=== PATIENT | male | born 1980 | race Caucasian/White ===

== ENCOUNTER 2018-12-02 00:10 | Emergency (ER) | payer OTHER, SELFPAY ==
[2018-12-02 00:10] VITALS: BP 162/93; PULSE 88; RESP 14; TEMP 36.7; O2SAT 100; BMI 40.0
--- NOTE | 2018-12-02 00:14 | RAD_ITS ---
HISTORY: IInjuryRAD-EXT/JTlt knee injury pain patella no hx of sx EXAM: Right Knee COMPARISON: None FINDINGS: # of images incl. paperwork: 4 The joint spaces are well-maintained. No fracture or subluxation. The patellofemoral joint has a normal appearance. Tiny joint effusion is seen. RAD/Knee 4 or More Views IMPRESSION: No fracture or dislocation to the right knee. Small right knee effusion at 0116 Reported and signed by: Eddie Tyson MD Electronically Signed: Eddie Tyson MD at 1:15 EDT Tel , Service support ,
--- NOTE | 2018-12-02 01:23 | ED.VISSUMM ---
- ER Visit Summary Date of Service: 12/02/18 Chief Complaint: Left knee injury History of Present Illness: The patient is a 38 M who presents with a left knee injury. He was trying to write a small bicycle when he fell off of it. He twisted his left knee. He has pain diffusely over the knee. Is worse with movement and walking. He tried ice but it did not help. He denies any previous injuries or surgeries. Physical Examination: Lungs are reviewed. Left knee exam reveals tenderness medially and laterally. There is no swelling. He has full range of motion with pain. He has 2+ pedal pulses Test Results: X-rays reviewed by radiologist shows a small effusion but no fracture Emergency Department Course and Treatment: Patient appears to have sprained his knee. There are no fractures. Patient will be given instructions to use ice, elevation and ibuprofen for pain. 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 He will follow-up with his PCP for recheck next week Treatment Plan: [] Disposition: Discharge Impression: Left knee pain This note was generated with [employer] dictation software. It may contain incorrect words, spelling, and punctuation that were not noted in review of the chart prior to signing ED Disposition - Plan for ED Patient: Referrals: Mike Hill III, MD [Primary Care Provider] -
--- NOTE | 2018-12-02 01:25 | ED.DEP ---
ED Disposition - Plan for ED Patient: Disposition: Home or Assisted Living Instructions: Knee Sprain Referrals: Mike Hill III, MD [Primary Care Provider] -
== END 2018-12-02 01:33 | disposition home or self-care (01) ==
PROVIDERS: Emergency Provider Emergency Medicine; Family Provider Family Medicine; PCP Family Medicine
DX: S83.92XA Sprain of unspecified site of left knee, initial encounter (principal); V19.88XA Pedal cyclist (driver) (passenger) injured in other specified transport accidents, initial encounter; Y93.55 Activity, bike riding; Y92.9 Unspecified place or not applicable; I10 Essential (primary) hypertension
CPT/HCPCS: 73564; 99282

== ENCOUNTER → 2021-05-04 20:10 | Outpatient (CLI) | payer OTHER, SELFPAY | LOC: SL 20:10 | PROVIDERS: PCP Family Medicine; Visit Provider Nurse Practitioner Family | DX: G47.33 Obstructive sleep apnea (adult) (pediatric) (principal) | CPT/HCPCS: 95811 ==

== ENCOUNTER 2021-05-26 11:08 | Day surgery (SDC) | payer OTHER, SELFPAY ==
[2021-05-26] VITALS (8 sets, daily range): BP systolic 118–143; BP diastolic 66–89; PULSE 65–81; RESP 16–18; TEMP 36.1–37; O2SAT 93–99; BMI 39.4
--- NOTE | 2021-05-26 08:08 | HP.PCM_ITS ---
History and Physical Date of Admission: 05/26/21 HISTORY AND PHYSICAL ? Eris Freed 1980 ? ? REFERRING PHYSICIAN: Víctor Sahni APRN.[employer] ? CHIEF COMPLAINT: left inguinal hernia ? HPI: The patient is a 40 year old male presents with left inguinal hernia. He states that he had a hernia repair at age 4 but does not know location. He has noted the present hernia for the past few months. He denies pain in the area but notes a pressure discomfort in the area. He also has symptoms of prostate hypertrophy - decreased strength of stream and difficulties in initiating stream, emptying is normal. ? PAST MEDICAL HISTORY ? Hyperlipidemia LDL goal < 100 01/21/2010 ? Hypertriglyceridemia 10/07/2015 ? Irritable bowel syndrome 01/21/2010 ? Low HDL (under 40) 10/07/2015 ? Obesity 08/10/2012 ? KIMANI (obstructive sleep apnea) 12/20/2016 ? 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 ? Other diseases of pharynx, not elsewhere classified(478.29) ? ? PAST SURGICAL HISTORY PAST SURGICAL HISTORY OF? hip dysplasia ? ? Current Outpatient Medications ? Cholestyramine, Bulk, powd 4 grams in 8 oz of water daily ? Tadalafil (CIALIS) 20 mg tab(s) Take 1 tablet by mouth as needed. ? losartan (COZAAR) 50 mg tablet Take 1 tablet by mouth once daily. ? ? ALLERGIES: Patient has no known allergies. ? PERSONAL HISTORY: ? Smoking status: Never Smoker ? Smokeless tobacco: Never Used Substance Use Topics ? Alcohol use: No ? Drug use: No ? FAMILY HISTORY ? None Mother ? ? Heart Father 46 ? CO ? None Sister ? ? None Sister ? ? The review of systems data was entered by the nurse and reviewed by me ? Nursing Notes: Donna Marquez RN 03/23/2021 10:39 AM Signed REVIEW OF SYSTEMS: General: The patient denies fatigue, denies weight loss, denies weight gain, denies feeling hot, and denies feelings of cold. Eyes: The patient denies glaucoma, denies eye injury/surgery, does not wear glasses or contacts. Ear/Nose/Throat: The patient denies allergies, denies hayfever, denies ear infections, and denies bloody noses. Cardiovascular: The patient denies chest pain, denies heart disease, notes high blood pressure,denies cardiac stent, denies prior heart attack, denies irregular heart beat, denies high cholesterol, denies poor circulation, denies heart failure, other cardiac issues, denies claudication, denies cold feet, denies peripheral arterial stent. Respiratory: The patient denies tuberculosis, denies pneumonia, denies frequent cough, denies pulmonary embolism, denies shortness of breath, and denies coughing up blood. Gastrointestinal: The patient denies difficulty swallowing, denies acid reflux, denies ulcers, denies vomiting, denies jaundice/hepatitis, denies gallbladder problems, denies black or tarry stools, denies hemorrhoids, denies bleeding from rectum, denies diverticulitis, denies constipation, denies diar jonnie, denies loss of stool control, and denies hernias. Kidney/Bladder: The patient denies kidney stones, denies urine infections, and denies bloody urine. Skin: The patient denies a history of skin cancer, denies bleeding/changing moles, and denies a history of skin rash. Neurologic: The patient denies a history of epilepsy/convulsions, denies headaches, denies head/spinal injuries, and denies stroke/TIA. Psychiatric: The patient denies psychiatric medications, denies depression, and denies voices, denies substance abuse. Endocrine: The patient denies thyroid disorders, denies diabetes, and denies hormonal problems. Hematologic: The patient denies a history of bruising, denies bleeding, and denies anemia, denies blood clots. Infections: The patient denies a history of measles and mumps, denies rheumatic fever, and denies sexually transmitted diseases. Musculoskeletal: The patient notes back/hip pain/injury, denies back problems, denies sciatica, denies knee/foot trouble, denies arthritis, or denies gout. When was patient's last Mammogram screening? N/A Last Colonoscopy: never Donna Marquez RN ? ? ? PHYSICAL EXAMINATION: General: The patient is 40 year old male, well nourished, well hydrated in no acute distress. The patient is oriented to time, place, and person. VITALS: Pulse 79, temperature 36.7 ?C (98 ?F), height 182.9 cm (6'), weight 136 kg (299 lb 12.8 oz), SpO2 98 %. Body mass index is 40.66 kg/m?. Head ? Normocephalic. EOM intact with sclera clear and no icterus noted. . Neck - supple with no jugular venous distention noted. Trachea is midline. Lungs ? clear to auscultation. Normal breath sounds. No rales/rhonchi/wheezing noted. No labored breathing noted, such as retractions. No cough heard. Heart ? normal S1 and S2 auscultated. No rubs/clicks/murmurs noted. Regular rate. Abdomen ? soft and benign. Normal bowel sounds. Difficult to determine if any masses or organomegaly due to body habitus. Genitalia ? normal male phallus, increased peripubic adiposity, testes in normal anatomical position and no masses noted, left inguinal hernia noted, no right inguinal hernias noted even with valsalva-like maneuvers Extremities ? no calf tenderness noted. No pitting edema noted. Skin ? normal skin integrity. Neurological ? gait normal, no focal deficits noted. Psych ? calm and appropriate ? IMPRESSION: left inguinal hernia, BMI 40 ? PLAN: I have discussed the above with the patient and his who is present with him. I have offered left inguinal hernia repair with mesh I have explained the procedure to the patient. I have counseled the patient as to the risks of the procedure, including but not limited to: infection, bleeding, injury to any blood vessels/nerves, scar tissue, chronic groin pain, injury to bowel/bladder, injury to the spermatic cord and/or testicle, recurrence of hernia, wound infections, complications of anesthesia, etc. ? the patient understands. The patient wishes to proceed. I have answered all questions to the patient?s satisfaction and the patient has no further questions. ? Diagnoses: (K40.90) Non-recurrent unilateral inguinal hernia without obstruction or gangrene (primary encounter diagnosis) (E66.01) Morbid obesity (HCC) Return to Clinic: The patient is instructed to follow-up with me after the procedure ? Becca Rain MD
[2021-05-26] MEDS: Lactated Ringers 1,000 ML 75 ML IV (12:24)
[2021-05-26] MEDS: Lidocaine 1% /Epi 1:100 (20ml) 20 ML Vial (13:10)
[2021-05-26] MEDS: Bupivacaine 0.25% 30 ML Vial (14:20)
--- NOTE | 2021-05-26 14:35 | OP.PCM_ITS ---
Report of Operation Date of Procedure: 05/26/21 Pre-Operative Diagnosis: left inguinal hernia Post-Operative Diagnosis: left inguinal hernia - direct and indirect Surgery/Procedure Performed:: left inguinal hernia repair with preperitoneal placement of mesh Description of Surgical Findings:: indirect and direct inguinal hernia Surgeon: Becca Rain Type of Anesthesia: General Anesthesiologist: Cheikh Urbina Specimen's removed: none Drains: none Estimated Blood Loss (mL): < 10 ml Fluids Replaced: 1000 ml RL Description of Procedure: After informed consent was obtained, patient was brought to the Operating Room. Appropriate time out protocol was followed. He was then placed in the supine position. The patient was then placed under anesthesia. The lower torso and the left groin area and genitalia were then prepped with a surgical skin preparation and appropriate sterile surgical drapes were placed. The anatomical landmarks were identified and marked. The skin and subcutaneous tissues were infiltrated with local anesthestic. A transverse skin incision was made above the level of the internal inguinal ring. The subcutaneous tissues were then sharply dissected down to the external oblique fascia and any hemorrhage was adequately controlled with electrocoagulation. The external oblique was then divided obliquely along the fibers and a muscle- splitting incision was then made to divide the internal oblique musculature and fascia. The transversalis fascia was then identified and was then incised parallel to the inferior hypogastric vessels. The preperitoneal space was then entered. Blunt dissection was then done to identify out Nadir's ligament, the pubic tubercle and a large area surrounding these landmarks for placement of the mesh. The iliac vessels were identified. The patient did not have a femoral hernia. There was an internal hernia sac identified. The peritoneal sac was then from the spermatic cord by blunt and sharp dissection. It was opened and there was no incarceration of any intraabdominal contents. There is no evidence of any other opening in the peritoneum. The peritoneal opening that was created was then closed using a running 3-0 Vicryl suture. A large 3D Bard left sided hernia mesh was then placed in the preperitoneal space. It was placed such that it would be overlapping medially beyond the pubic tubercle and overlapping inferior to Nadir's ligament. The medial aspect of the mesh was then tacked to the pubic tubercle using a 5 mm tacker. Another tack was placed more lateral to this along Nadir's ligament. The mesh was then flattened out against the anterior abdominal wall. The mesh covered the entire wound opening also. The internal oblique fascia was then closed using interrupted 0 prolene suture. One of the sutures was used to lock the mesh into position. Hemostasis was carefully controlled with electrocoagulation. The external oblique fascia was then reapproximated using a running 0 Vicryl suture. This was carefully done to avoid any entrapment of blood vessels/nerves. Adria's fascia was closed using Vicryl suture in an interrupted simple fashion. The skin incision was closed with 4-0 Monocryl in a running subcuticular fashion. Cavilon and Steri- Strips were used to reinforce the skin closure and appropriate sterile dressing was applied. The patient was extubated. The patient tolerated the procedure well and there was no evidence of any complications. The patient was brought to the Recovery Room in stable condition. Grafts/Implants Used: Bard 3D Max Mesh Lot [id number], exp 2025-08-03 Complications none noted
--- NOTE | 2021-05-26 14:56 | EX.PCM.DISCH ---
Discharge Instructions Follow Up Care Test Results: Test results from this visit will be discussed in further detail at your follow-up appointment, if applicable. Discharge Plan Admission Attending Provider: Becca Rain Primary Care Provider: Víctor Sahni NP Instructions Additional Instructions / Restrictions: Recommended pain control regimen - May take 600 mg ibuprofen (Motrin) and then in 3-4 hours, may take 650 mg acetaminophen (Tylenol), then in 3-4 hours may take 600 mg ibuprofen, then in 3-4 hours may take 650 mg acetaminophen and so on for 2-3 days May take narcotic pain medication for pain that is not controlled by above and at night for comfort through the night Leave dressings in place May shower, do not scrub in the areas of the dressings as they may unravel. Do not soak - no tub baths/swimming Ice applied to areas of discomfort may help No lifting/pushing/pulling greater than 20 pounds for a month. Regular diet as tolerated, drink plenty of fluids. Use over the counter laxative as needed. For inguinal hernia repairs - sit in a Lazy-Boy type chair or similar position for comfort and elevate legs, place ice packs in the affected area. If you have scrotal swelling, place a folded towel on top of the upper part of your thighs and place scrotum on top of this to allow for fluid to return back into the torso. Please call my office for an appointment to see me in 1-2 weeks. Office number is If any questions, please call my office at and ask the broaching machine operator for the general surgery nurses desk Discharge Orders/Prescriptions Prescriptions: New hydrocodone-acetaminophen 5-325 mg tablet 1 tab PO Q8H 5 Days Qty: 15 RF: 0 No Action cholestyramine (with sugar) 378 GM powder 378 gm PO DAILY RF: 0 losartan 50 mg tablet 50 mg PO DAILY RF: 0 Referrals / Follow Up: Víctor Sahni NP, [employer] [Primary Care Provider] - Disposition Disposition (needs filled in before D/C Order can be placed): Home, Self Care
== END 2021-05-26 17:00 | disposition home or self-care (01) ==
LOC: SDC 11:14 → AC 11:18
PROVIDERS: PCP Nurse Practitioner Family; Visit Provider Surgery
PROC: (CPT 49505; principal; 2021-05-26 12:45)
DX: K40.90 Unilateral inguinal hernia, without obstruction or gangrene, not specified as recurrent (principal); E78.5 Hyperlipidemia, unspecified; G47.33 Obstructive sleep apnea (adult) (pediatric); K58.9 Irritable bowel syndrome, unspecified; E66.01 Morbid (severe) obesity due to excess calories; I10 Essential (primary) hypertension; Z68.41 Body mass index [BMI] 40.0-44.9, adult; Z79.899 Other long term (current) drug therapy
CPT/HCPCS: 00830; 49505; J7050; J7120; C1781; J2405

== ENCOUNTER 2021-07-14 11:00 | Outpatient (CLI) | payer OTHER, SELFPAY | END 2021-07-14 23:59 | disposition home or self-care (01) | LOC: SL 11:48 | PROVIDERS: PCP Nurse Practitioner Family; Referring Provider Nurse Practitioner Family; Visit Provider Nurse Practitioner Family | DX: Z46.89 Encounter for fitting and adjustment of other specified devices (principal) ==